=== PATIENT | male | born 1995 | race Caucasian/White ===

== ENCOUNTER 2016-12-25 14:11 | Emergency (ER) | payer MEDICAID ==
[~2016-12-25] VITALS: Ht 177.8 cm; Wt 104.3 kg
[2016-12-25 14:20] VITALS: BP 145/89; PULSE 82; RESP 15; TEMP 97.7; O2SAT 99
[2016-12-25 15:55] VITALS: BP 145/89; PULSE 82; RESP 15; TEMP 97.7; O2SAT 99
== END 2016-12-25 15:55 | disposition home or self-care (01) ==
LOC: SED 14:11
DX: S61.411A Laceration without foreign body of right hand, initial encounter (principal); R03.0 Elevated blood-pressure reading, without diagnosis of hypertension; J45.909 Unspecified asthma, uncomplicated; Z91.013 Allergy to seafood; W45.8XXA Other foreign body or object entering through skin, initial encounter; Y93.89 Activity, other specified; Y99.0 Civilian activity done for income or pay; Y92.89 Other specified places as the place of occurrence of the external cause
CPT/HCPCS: 99283

== ENCOUNTER 2018-11-04 04:25 | Emergency (ER) | payer MEDICAID ==
[~2018-11-04] VITALS: Ht 177.8 cm; Wt 113.4 kg
--- NOTE | 2018-11-04 04:30 | NUR ---
Pt C/O of medial back pain radiating to the abdomen and nausea x 12 hours. Pt states pain began at work and denies any strain or trauma to the effected area. Pain is a constant 8/10. Pt denies any chest pain, shortness of breath, vomiting at this time. Vital signs stable at this time.
--- NOTE | 2018-11-04 04:32 | NUR ---
Patient to ER bed 7 to gown for evaluation.
[2018-11-04 04:35] VITALS: BP_SYST 156
--- NOTE | 2018-11-04 04:37 | NUR ---
ER Dr. Brooke at bedside examining patient.
[2018-11-04] MEDS ORDERED: NACL 0.9% 1,000 ML IV ONE (04:40)
[2018-11-04] MEDS ORDERED: ONDANSETRON HCL 4 MG/2 ML VIAL IVP ONE (04:45)
[2018-11-04] MEDS ORDERED: KETOROLAC TROMETHAMINE 30 MG VIAL IVP ONE (04:45)
--- NOTE | 2018-11-04 04:45 | NUR ---
# 20 gauge angiocath placed to Lt AC. Use of asceptic technique. Opsite placed over site. Blood return noted. Blood for lab drawn from site. Flushed with 10 cc of normal saline. No evidence of infiltration noted. Patient tolerated well.
[2018-11-04 04:52] LABS: BILIRUBIN,URINE NEGATIVE (NEGATIVE); BLOOD, URINE NEGATIVE (NEGATIVE); CLARITY/URINE CLEAR (CLEAR); COLOR,URINE YELLOW (YELLOW); GLUCOSE,URINE NEGATIVE (NEGATIVE); KETONES,URINE NEGATIVE (NEGATIVE); LEUKOCYTE ESTERASE ,URINE NEGATIVE (NEGATIVE); NITRITE, URINE NEGATIVE (NEGATIVE); PROTEIN URINE NEGATIVE (NEGATIVE); UROBILINOGEN,URINE 0.2 (0.2-1.0)
--- NOTE | 2018-11-04 04:53 | NUR ---
Pt medicated with Toradol IVP, zofran IVP, and fluids per MD order. Tolerated well. Will cont. to monitor.
--- NOTE | 2018-11-04 05:15 | NUR ---
Pt taken to radiology.
[2018-11-04 05:26] LABS: BASOPHILS # (AUTO) 0.1 K/uL (0.0-0.2); BASOPHILS % (AUTO) 1.3 % (0.0-2.0); EOSINOPHILS # (AUTO) 0.2 K/uL (0.0-0.4); EOSINOPHILS % (AUTO) 2.3 % (0.0-4.0); HEMOGLOBIN 16.8 g/dL (14.0-18.0); LYMPHOCYTES # (AUTO) 4.1 K/uL (1.0-5.5); LYMPHOCYTES % (AUTO) 46.2 % (20.5-51.5); MEAN CORPUSCULAR HEMOGLOBIN 30 pg (27-31); MEAN CORPUSCULAR HGB CONC 34 % (32-36); MEAN CORPUSCULAR VOLUME 87 fL (79.0-98.0); MONOCYTES # (AUTO) 0.8 K/uL (0.0-1.0); MONOCYTES % (AUTO) 9.1 % (1.7-9.3); NEUTROPHILS # (AUTO) 3.6 K/uL (1.8-7.7); NEUTROPHILS % (AUTO) 41.1 % (40.0-70.0); PLATELET COUNT (AUTO) 264 K/uL (130-430); RED BLOOD CELL COUNT(AUTO) 5.61 MIL/uL (4.2-6.2); RED CELL DISTRIBUTION WIDTH 12.3 % (9.0-15.0); WHITE BLOOD COUNT (AUTO) 8.8 K/uL (4.8-10.8)
[2018-11-04 05:34] LABS: CALCIUM 9.2 mg/dL (8.4-11.0); CREATININE 0.92 mg/dL (0.55-1.30); POTASSIUM 3.8 mmol/L (3.5-5.1)
--- NOTE | 2018-11-04 05:39 | NUR ---
Pt is resting quietly in bed, no acute distress noted. Will continue to monitor.
[2018-11-04 05:40] LABS: ALBUMIN 4.1 g/dL (3.4-4.8); TOTAL BILIRUBIN 0.3 mg/dL (0.0-1.0)
[2018-11-04 06:39] VITALS: BP_SYST 156
--- NOTE | 2018-11-04 06:42 | NUR ---
Patient given written and verbal discharge instructions and verbalizes understanding. ER MD discussed with patient the results and treatment provided. Patient in stable condition. ID arm band removed. IV catheter removed intact and dressing applied, no active bleeding. Rx of Robaxin, Motrin, and Tramadol given. Patient educated on pain management and to follow up with PMD. Pain Scale 2/10. Opportunity for questions provided and answered. Medication side effect fact sheet provided.
== END 2018-11-04 06:39 | disposition home or self-care (01) ==
LOC: SED 04:25
DX: M54.9 Dorsalgia, unspecified (principal); R11.0 Nausea; J45.909 Unspecified asthma, uncomplicated; Z88.2 Allergy status to sulfonamides
CPT/HCPCS: 36415; 74176; 80053; 81003; 85025; 96374; 96375; 99284; J1885; J2405; J7030

== ENCOUNTER 2018-12-11 23:21 | Emergency (ER) | payer MEDICAID ==
[~2018-12-11] VITALS: Ht 177.8 cm; Wt 113.4 kg
--- NOTE | 2018-12-11 23:31 | NUR ---
patient arrived AOx4 from home with girlfriend at bedside. patient states he has had left arm pain that shot down to his fingers since 4 pm that developed into chest pressure/pain after he woke up at 7pm. patient states he had in and out fries prior to arrival, since eating he has had nausea. patient denies smoking, drug or ETOH use. patient has no medical history. no other complaint or injury at this time.
--- NOTE | 2018-12-11 23:31 | NUR ---
Patient to ER bed 08 to gown for evaluation. Side rails up. Report given to Steffany.
--- NOTE | 2018-12-11 23:40 | NUR ---
ER at bedside examining patient.
[2018-12-12 01:07] LABS: BASOPHILS # (AUTO) 0.1 K/uL (0.0-0.2); BASOPHILS % (AUTO) 0.7 % (0.0-2.0); EOSINOPHILS # (AUTO) 0.2 K/uL (0.0-0.4); EOSINOPHILS % (AUTO) 2.3 % (0.0-4.0); HEMATOCRIT 48.8 % (36-54); LYMPHOCYTES # (AUTO) 3.3 K/uL (1.0-5.5); LYMPHOCYTES % (AUTO) 40.3 % (20.5-51.5); MEAN CORPUSCULAR HEMOGLOBIN 29 pg (27-31); MEAN CORPUSCULAR HGB CONC 33 % (32-36); MEAN CORPUSCULAR VOLUME 87 fL (79.0-98.0); MONOCYTES # (AUTO) 0.7 K/uL (0.0-1.0); MONOCYTES % (AUTO) 8.7 % (1.7-9.3); NEUTROPHILS # (AUTO) 3.9 K/uL (1.8-7.7); PLATELET COUNT (AUTO) 225 K/uL (130-430); RED CELL DISTRIBUTION WIDTH 12.4 % (9.0-15.0); WHITE BLOOD COUNT (AUTO) 8.2 K/uL (4.8-10.8)
[2018-12-12 01:14] LABS: ANION GAP 10 (5-15); CALCIUM 8.7 mg/dL (8.4-11.0); CHLORIDE 104 mmol/L (98-107); CREATININE 0.91 mg/dL (0.55-1.30); GLUCOSE 94 mg/dL (70-99); POTASSIUM 3.6 mmol/L (3.5-5.1); SODIUM SERUM 142 mmol/L (136-145); UREA NITROGEN, BLOOD 13 mg/dL (8-21)
[2018-12-12 01:15] LABS: GFR AFRICAN AMERICAN 134 mL/min (>90)
[2018-12-12 01:23] LABS: ALANINE AMINOTRANSFERASE 96 U/L (12-78); ALBUMIN 4.1 g/dL (3.4-4.8); ASPARTATE AMINOTRANSFERASE 37 U/L (10-37); TOTAL BILIRUBIN 0.3 mg/dL (0.0-1.0)
[2018-12-12 02:02] VITALS: BP_SYST 130
--- NOTE | 2018-12-12 02:02 | NUR ---
Patient given written and verbal discharge instructions and verbalizes understanding. ER MD discussed with patient the results and treatment provided. Patient in stable condition. ID arm band removed. Rx of Motrin given. Patient educated on pain management and to follow up with PMD. Pain Scale 2/10 tolerable to patient. Opportunity for questions provided and answered. Medication side effect fact sheet provided.
== END 2018-12-12 02:02 | disposition home or self-care (01) ==
LOC: SED 23:21
DX: R07.89 Other chest pain (principal); J45.909 Unspecified asthma, uncomplicated; R03.0 Elevated blood-pressure reading, without diagnosis of hypertension; Z91.013 Allergy to seafood
CPT/HCPCS: 36415; 71046-TC; 80053; 84484; 85025; 93005; 99284

== ENCOUNTER 2020-12-19 09:01 | Emergency (ER) | payer MEDICAID ==
[~2020-12-19] VITALS: Ht 177.8 cm; Wt 93.0 kg
[2020-12-19 09:24] VITALS: BP_SYST 131
[2020-12-19 09:30] VITALS: BP_SYST 131
== END 2020-12-19 09:28 | disposition home or self-care (01) ==
LOC: SED 09:01
DX: M79.644 Pain in right finger(s) (principal); J45.909 Unspecified asthma, uncomplicated; Z91.018 Allergy to other foods
CPT/HCPCS: 99284

== ENCOUNTER 2021-02-01 00:22 | Emergency (ER) | payer MEDICAID ==
[~2021-02-01] VITALS: Ht 177.8 cm; Wt 95.3 kg
[2021-02-01 00:43] VITALS: BP_SYST 143
--- NOTE | 2021-02-01 00:50 | NUR ---
Patient to ER bed 5 to gown for evaluation. Side rails up.
--- NOTE | 2021-02-01 00:51 | NUR ---
Patient BIB by family from home. C/O left ear pain x 5 days. Patient had a new piercing x 3 weeks ago. A/O,X4, left ear pain, pain rate 8/10, redness, swelling.
--- NOTE | 2021-02-01 00:53 | NUR ---
ER Dr. Hamilton at bedside examining patient.
[2021-02-01] MEDS ORDERED: cefTRIAXone 1 GM in LIDOCAINE 1%, 20 ML MDV 2.1 ML IM ONE (01:00)
[2021-02-01] MEDS ORDERED: KETOROLAC TROMETHAMINE 60 MG/2 ML VIAL IM ONE (01:00)
[2021-02-01] MEDS ORDERED: CIPR250T4 PO (01:17)
[2021-02-01] MEDS ORDERED: IBUP-1971 PO (01:17)
[2021-02-01 01:34] VITALS: BP_SYST 143
--- NOTE | 2021-02-01 01:34 | NUR ---
Patient given written and verbal discharge instructions and verbalizes understanding. ER MD discussed with patient the results and treatment provided. Patient in stable condition. ID arm band removed. Rx of Ciprofloxacin and Ibuprofen given. Patient educated on pain management and to follow up with PMD. Pain Scale . Opportunity for questions provided and answered. Medication side effect fact sheet provided.
== END 2021-02-01 01:34 | disposition home or self-care (01) ==
LOC: SED 00:22
DX: H61.002 Unspecified perichondritis of left external ear (principal); J45.909 Unspecified asthma, uncomplicated; Z91.013 Allergy to seafood
CPT/HCPCS: 96372; 99284; J0696; J1885; J2001

== ENCOUNTER 2021-02-19 17:10 | Emergency (ER) | payer MEDICAID ==
[~2021-02-19] VITALS: Ht 177.8 cm; Wt 95.3 kg
[~2021-02-19 17:10] MED LIST: CIPR250T4 PO; IBUP-1971 PO
[2021-02-19 17:17] VITALS: BP_SYST 142
[2021-02-19] MEDS ORDERED: CIPR500T5 PO (18:58)
[2021-02-19 19:05] VITALS: BP_SYST 142
== END 2021-02-19 19:06 | disposition home or self-care (01) ==
LOC: SED 17:10
DX: H61.001 Unspecified perichondritis of right external ear (principal); J45.909 Unspecified asthma, uncomplicated; Z91.013 Allergy to seafood
CPT/HCPCS: 99283

== ENCOUNTER 2021-04-14 14:05 | Emergency (ER) | payer MEDICAID ==
[~2021-04-14] VITALS: Ht 177.8 cm; Wt 95.3 kg
[2021-04-14 14:05] VITALS: BP_SYST 146
[~2021-04-14 14:05] MED LIST changes: +CIPR500T5 PO
[2021-04-14] MEDS: IBUPROFEN 400 MG TABLET PO ONE (14:47)
[2021-04-14 15:24] LABS: BASOPHILS # (AUTO) 0.2 K/uL (0.0-0.2); BASOPHILS % (AUTO) 1.8 % (0.0-2.0); EOSINOPHILS % (AUTO) 0.2 % (0.0-4.0); HEMATOCRIT 44.3 % (36-54); HEMOGLOBIN 15.5 g/dL (14.0-18.0); LYMPHOCYTES # (AUTO) 2.2 K/uL (1.0-5.5); LYMPHOCYTES % (AUTO) 26.3 % (20.5-51.5); MEAN CORPUSCULAR HEMOGLOBIN 31 pg (27-31); MEAN CORPUSCULAR HGB CONC 35 % (32-36); MEAN CORPUSCULAR VOLUME 88 fL (79.0-98.0); MONOCYTES # (AUTO) 0.4 K/uL (0.0-1.0); MONOCYTES % (AUTO) 4.8 % (1.7-9.3); NEUTROPHILS # (AUTO) 5.7 K/uL (1.8-7.7); NEUTROPHILS % (AUTO) 66.9 % (40.0-70.0); PLATELET COUNT (AUTO) 245 K/uL (130-430); RED BLOOD CELL COUNT(AUTO) 5.04 MIL/uL (4.2-6.2); RED CELL DISTRIBUTION WIDTH 13.3 % (9.0-15.0); WHITE BLOOD COUNT (AUTO) 8.5 K/uL (4.8-10.8)
[2021-04-14 15:41] LABS: ANION GAP 9 (5-15); CALCIUM 9.2 mg/dL (8.4-11.0); CHLORIDE 105 mmol/L (98-107); CREATININE 0.99 mg/dL (0.55-1.30); GLUCOSE 104 mg/dL (70-99); POTASSIUM 3.9 mmol/L (3.5-5.1); SODIUM SERUM 142 mmol/L (136-145); UREA NITROGEN, BLOOD 13 mg/dL (8-21)
[2021-04-14 15:45] LABS: GFR AFRICAN AMERICAN 119 mL/min (>90)
[2021-04-14 15:50] LABS: ALANINE AMINOTRANSFERASE 20 U/L (12-78); ALBUMIN 4.3 g/dL (3.4-4.8); ASPARTATE AMINOTRANSFERASE 17 U/L (10-37); TOTAL BILIRUBIN 0.7 mg/dL (0.0-1.0)
[2021-04-14 17:00] VITALS: BP_SYST 126
== END 2021-04-14 17:00 | disposition home or self-care (01) ==
LOC: SED 14:05
DX: M79.602 Pain in left arm (principal); J45.909 Unspecified asthma, uncomplicated; Z79.899 Other long term (current) drug therapy; Z91.013 Allergy to seafood
CPT/HCPCS: 36415; 71045; 80053; 84484; 85025; 93005; 99285

== ENCOUNTER 2021-05-08 11:21 | Emergency (ER) | payer MEDICAID ==
[~2021-05-08] VITALS: Ht 177.8 cm; Wt 94.8 kg
--- NOTE | 2021-05-08 11:25 | NUR ---
Patient to ER bed 8 to gown for evaluation. Side rails up.
[2021-05-08 11:26] VITALS: BP_SYST 128
--- NOTE | 2021-05-08 11:30 | NUR ---
Pt walked in to ER with c/o left shoulder pain 07/17 x1 week. Denies any trauma at this time. VS stable, no acute distress noted.
--- NOTE | 2021-05-08 11:35 | NUR ---
ER Dr. Dawson at bedside examining patient.
--- NOTE | 2021-05-08 11:45 | NUR ---
Patient transported to radiology via wheelchair, accompanied by staff.
[2021-05-08 12:18] LABS: RED CELL DISTRIBUTION WIDTH 13.3 % (9.0-15.0); WHITE BLOOD COUNT (AUTO) 7.1 K/uL (4.8-10.8)
[2021-05-08 12:24] LABS: ANION GAP 7 (5-15); CALCIUM 8.9 mg/dL (8.4-11.0); CHLORIDE 104 mmol/L (98-107); CREATININE 0.96 mg/dL (0.55-1.30); GLUCOSE 105 mg/dL (70-99); POTASSIUM 4.1 mmol/L (3.5-5.1); SODIUM SERUM 141 mmol/L (136-145); UREA NITROGEN, BLOOD 16 mg/dL (8-21)
[2021-05-08 12:25] LABS: BASOPHILS % (AUTO) 0.6 % (0.0-2.0); EOSINOPHILS % (AUTO) 0.3 % (0.0-4.0); HEMATOCRIT 47.6 % (36-54); HEMOGLOBIN 16.6 g/dL (14.0-18.0); LYMPHOCYTES # (AUTO) 1.8 K/uL (1.0-5.5); LYMPHOCYTES % (AUTO) 25.9 % (20.5-51.5); MEAN CORPUSCULAR HEMOGLOBIN 31 pg (27-31); MEAN CORPUSCULAR HGB CONC 35 % (32-36); MEAN CORPUSCULAR VOLUME 90 fL (79.0-98.0); MONOCYTES # (AUTO) 0.5 K/uL (0.0-1.0); MONOCYTES % (AUTO) 6.8 % (1.7-9.3); NEUTROPHILS # (AUTO) 4.7 K/uL (1.8-7.7); NEUTROPHILS % (AUTO) 66.4 % (40.0-70.0); PLATELET COUNT (AUTO) 258 K/uL (130-430); RED BLOOD CELL COUNT(AUTO) 5.31 MIL/uL (4.2-6.2)
[2021-05-08 12:31] LABS: GFR AFRICAN AMERICAN 124 mL/min (>90)
[2021-05-08 12:40] LABS: ALANINE AMINOTRANSFERASE 24 U/L (12-78); ALBUMIN 4.3 g/dL (3.4-4.8); ASPARTATE AMINOTRANSFERASE 18 U/L (10-37); C-REACTIVE PROTEIN QUANT < 0.2 mg/dL (0-0.5); TOTAL BILIRUBIN 0.8 mg/dL (0.0-1.0); URIC ACID 6.2 mg/dL (2.4-7.0)
--- NOTE | 2021-05-08 13:00 | NUR ---
Patient given written and verbal discharge instructions and verbalizes understanding. ER MD discussed with patient the results and treatment provided. Patient in stable condition. ID arm band removed. Rx of Motrin and [place] given. Patient educated on pain management and to follow up with PMD. Pain Scale 0. Opportunity for questions provided and answered. Medication side effect fact sheet provided.
[2021-05-08 13:04] VITALS: BP_SYST 128
[2021-05-08 13:29] LABS: ERYTHROCYTE SEDIMENTATION RATE 1 MM/HR (0-15)
== END 2021-05-08 13:00 | disposition home or self-care (01) ==
LOC: SED 11:21
DX: M75.22 Bicipital tendinitis, left shoulder (principal); J45.909 Unspecified asthma, uncomplicated; Z91.013 Allergy to seafood; Z79.899 Other long term (current) drug therapy
CPT/HCPCS: 36415; 73030; 80053; 84550; 85025; 85651-TC; 86140; 99284

== ENCOUNTER 2021-06-16 15:35 | Emergency (ER) | payer MEDICAID ==
[~2021-06-16] VITALS: Ht 177.8 cm; Wt 93.0 kg
[2021-06-16 15:54] VITALS: BP_SYST 155
[2021-06-16 16:44] LABS: BASOPHILS % (AUTO) 0.6 % (0.0-2.0); EOSINOPHILS % (AUTO) 0.2 % (0.0-4.0); HEMATOCRIT 47.3 % (36-54); HEMOGLOBIN 16.6 g/dL (14.0-18.0); LYMPHOCYTES # (AUTO) 2.2 K/uL (1.0-5.5); LYMPHOCYTES % (AUTO) 27.2 % (20.5-51.5); MEAN CORPUSCULAR HEMOGLOBIN 31 pg (27-31); MEAN CORPUSCULAR HGB CONC 35 % (32-36); MEAN CORPUSCULAR VOLUME 88 fL (79.0-98.0); MONOCYTES # (AUTO) 0.6 K/uL (0.0-1.0); MONOCYTES % (AUTO) 7.3 % (1.7-9.3); NEUTROPHILS # (AUTO) 5.2 K/uL (1.8-7.7); NEUTROPHILS % (AUTO) 64.7 % (40.0-70.0); PLATELET COUNT (AUTO) 277 K/uL (130-430); RED BLOOD CELL COUNT(AUTO) 5.37 MIL/uL (4.2-6.2); RED CELL DISTRIBUTION WIDTH 12.4 % (9.0-15.0); WHITE BLOOD COUNT (AUTO) 8.1 K/uL (4.8-10.8)
[2021-06-16 17:04] LABS: CALCIUM 10.1 mg/dL (8.4-11.0); CREATININE 1.04 mg/dL (0.55-1.30); POTASSIUM 4.2 mmol/L (3.5-5.1)
[2021-06-16 17:08] LABS: PROTHROMBIN TIME 10.7 SECS (9.5-12.5)
[2021-06-16 17:09] LABS: ALBUMIN 4.6 g/dL (3.4-4.8); TOTAL BILIRUBIN 1.2 mg/dL (0.0-1.0)
[2021-06-16 18:20] VITALS: BP_SYST 127
== END 2021-06-16 18:20 | disposition home or self-care (01) ==
LOC: SED 15:35
DX: R55 Syncope and collapse (principal); J45.909 Unspecified asthma, uncomplicated; Z79.899 Other long term (current) drug therapy; Z91.013 Allergy to seafood
CPT/HCPCS: 36415; 70450-TC; 71045; 76376; 80053; 83605; 84484; 85025; 85610-TC; 85730-TC; 93005; 99285